=== PATIENT | female | born 1945 | race Caucasian/White ===

== ENCOUNTER 2018-01-01 13:34 | Outpatient (CLI) | payer MEDICARE, BC | END 2018-01-01 13:35 | disposition home or self-care (01) | LOC: BICRAD 13:34 | PROVIDERS: ATTEND Family Medicine | DX: R09.81 Nasal congestion (principal) | CPT/HCPCS: 70220 ==

== ENCOUNTER 2018-01-24 08:53 | Outpatient (CLI) | payer MEDICARE, BC | END 2018-01-24 08:54 | disposition home or self-care (01) | LOC: BICMAMMO 08:53 | PROVIDERS: ATTEND Family Medicine | DX: Z12.31 Encounter for screening mammogram for malignant neoplasm of breast (principal) | CPT/HCPCS: 77063; 77067 ==

== ENCOUNTER 2018-04-07 09:59 | Emergency (ER) | payer MEDICARE, BC ==
[2018-04-07 11:04] LABS: #Basophils 0.1 thou/uL (0.0-0.2); #Eosinphils 0.1 thou/uL (0.0-0.7); #Monocytes 0.5 thou/uL (0.11-0.59); #Neutrophils 3.7 thou/uL (1.40-6.50); %Basophils 0.9 % (0.0-1.0); %Eosinophils 1.6 % (0.0-10.0); %Lymphocytes 30.9 % (21.0-51.0); %Monocytes 8.5 % (0.0-10.0); %Neutrophils 58.1 % (42.0-75.0); Mean Corpuscular HGB CONC 33.4 g/dL (32.0-36.0); Mean Corpuscular Hemoglobin 31.2 pg (27.0-31.0); Mean Corpuscular Volume 93.4 fl (81.0-99.0); Mean Platelet Volume 6.6 fL (7.4-10.4); Platelet Count 258 thou/uL (130-400); RBC Distribution Width 11.9 % (11.5-14.5); Red Blood Cell (RBC) Count 4.81 mill/uL (4.20-5.40); White Blood Cell (WBC) Count 6.3 thou/uL (4.8-10.8)
[2018-04-07] MEDS ORDERED: Pantoprazole 40 MG VIAL ONE (11:22)
[2018-04-07 11:24] LABS: ALT (SGPT) 15 U/L (8-55); AST (SGOT) 24 U/L (5-34); Albumin 4.1 g/dL (3.4-4.8); Alkaline Phosphatase 56 U/L (40-150); Anion Gap 11 mmol/L (10-20); BUN (Urea Nitrogen) 16 mg/dL (9.8-20.1); Bilirubin, Total 0.5 mg/dL (0.2-1.2); Calc. Creatinine Clearance 0 mL/min (70-130); Calcium 9.8 mg/dL (7.8-10.44); Carbon Dioxide 23 mmol/L (23-31); Chloride 107 mmol/L (98-107); Estimated GFR-MDRD 64; Globulin 3.3 g/dL (2.4-3.5); Glucose 95 mg/dL (80-115); Potassium 4.4 mmol/L (3.5-5.1); Protein, Total 7.4 g/dL (6.0-8.3); Sodium 137 mmol/L (136-145)
[2018-04-07 11:45] LABS: Bilirubin Negative (Negative); Blood, Urine Negative (Negative); Clarity CLEAR (Clear); Glucose, Urine (Dipstick) Negative (Negative); Leukocyte Negative (Negative); Nitrite Negative (Negative); Protein, Urine (Dipstick) Negative (Neg-Trace); Specific Gravity, Urine 1.022 (1.002-1.036); Urobilinogen 0.2 mg/dL (0.2-1.0); pH, Urine 5.5 (5.0-9.0)
[2018-04-07 11:45] LABS: CK (CPK) 63 U/L (29-168); Lipase 30 U/L (8-78)
[2018-04-07] MEDS ORDERED: ISOVUE-370 76%-LOCM 1 ML ONE (12:31)
[2018-04-07] MEDS ORDERED: Iopamidol 370 76% 50 ML VIAL FS ONE (12:31)
--- NOTE | 2018-04-07 14:10 | CT ---
CT ABDOMEN WITH CONTRAST CT PELVIS WITH CONTRAST: DATE: 04/07/18 TIME: 1257 HOURS HISTORY: 72-year-old female with epigastric abdominal pain. COMPARISON: 11/21/15. TECHNIQUE: IV injection of iodinated contrast media: 100 mL [id number]. Oral contrast media: PO Isovue. FINDINGS: Previously, there was a moderate amount of free fluid in the dependent portion of the pelvic cavity. Currently, there is no free fluid. No pneumoperitoneum. Previously, there was diffuse colitis involvi ng the distal colon. Currently, no signs of acute colitis or diverticulitis. There are diverticula in the sigmoid colon. No small bowel dilation. No abdominal aortic aneurysm. Small sliding hiatal herni a. Bilateral kidneys, adrenals, pancreas, liver, and spleen are normal. Cholecystectomy clips. Lung b ases are clear. Distended urinary bladder with low lying floor. Absent uterus. The appendix is not vi sualized. IMPRESSION: 1. No acute findings. 2. Sigmoid colonic diverticulosis without acute diverticulitis. 3. Status post hysterectomy. Pelvic relaxation. 4. Status post cholecystectomy. 5. Small sliding hiatal hernia. ERIC POS: MONICA
== END 2018-04-07 15:33 | disposition home or self-care (01) ==
LOC: ERS 09:59
DX: R10.13 Epigastric pain (principal); E78.00 Pure hypercholesterolemia, unspecified; F41.9 Anxiety disorder, unspecified; Z79.899 Other long term (current) drug therapy; Z79.82 Long term (current) use of aspirin
CPT/HCPCS: 74177; 80053; 81003; 82550; 83690; 85025; 93005; 96361; 96374; C9113

== ENCOUNTER 2019-01-31 01:20 | Emergency (ER) | payer MEDICARE, BC ==
[2019-01-31 01:42] LABS: #Basophils 0.1 thou/uL (0.0-0.2); #Eosinphils 0.3 thou/uL (0.0-0.7); #Monocytes 0.6 thou/uL (0.11-0.59); #Neutrophils 3.6 thou/uL (1.40-6.50); %Basophils 1.3 % (0.0-1.0); %Eosinophils 3.5 % (0.0-10.0); %Lymphocytes 39.4 % (21.0-51.0); %Monocytes 7.3 % (0.0-10.0); %Neutrophils 48.4 % (42.0-75.0); Hemoglobin 14.7 g/dL (12.0-16.0); Mean Corpuscular HGB CONC 33.6 g/dL (32.0-36.0); Mean Corpuscular Hemoglobin 31.6 pg (27.0-31.0); Mean Corpuscular Volume 94.1 fL (78.0-98.0); Mean Platelet Volume 6.7 fL (7.4-10.4); Platelet Count 254 thou/uL (130-400); RBC Distribution Width 11.6 % (11.5-14.5); Red Blood Cell (RBC) Count 4.66 mill/uL (4.20-5.40); White Blood Cell (WBC) Count 7.5 thou/uL (4.8-10.8)
[2019-01-31 02:04] LABS: ALT (SGPT) 18 U/L (8-55); AST (SGOT) 25 U/L (5-34); Albumin 4.3 g/dL (3.4-4.8); Alkaline Phosphatase 65 U/L (40-150); Anion Gap 15 mmol/L (10-20); BUN (Urea Nitrogen) 13 mg/dL (9.8-20.1); Bilirubin, Total 0.4 mg/dL (0.2-1.2); Calc. Creatinine Clearance 0 mL/min (70-130); Calcium 10.3 mg/dL (7.8-10.44); Carbon Dioxide 27 mmol/L (23-31); Chloride 105 mmol/L (98-107); Estimated GFR-MDRD 65; Glucose 109 mg/dL (83-110); Potassium 3.5 mmol/L (3.5-5.1); Protein, Total 7.3 g/dL (6.0-8.3); Sodium 143 mmol/L (136-145)
[2019-01-31 03:59] LABS: Bilirubin Negative (Negative); Blood, Urine Negative (Negative); Clarity CLEAR (Clear); Glucose, Urine (Dipstick) Negative (Negative); Leukocyte Negative (Negative); Nitrite Negative (Negative); Protein, Urine (Dipstick) Negative (Neg-Trace); Specific Gravity, Urine 1.019 (1.002-1.036); pH, Urine 6.5 (5.0-9.0)
[2019-01-31] MEDS ORDERED: Aspirin Chewable 81 MG TAB ONE (05:05)
--- NOTE | 2019-01-31 07:58 | RAD ---
PORTABLE CHEST 1 VIEW: DATE: 01/31/2019. TIME: 12:50 a.m. HISTORY: Chest pain. FINDINGS: Comparison is made with to the exam of 10/15/2016. There is continued mild elevation of the right hemidiaphragm. The heart size is normal. The lungs a re expanded without focal areas of consolidation, pneumothoraces, or pleural effusions. There are po stop changes of right rotator cuff repair. IMPRESSION: No acute process. POS: MONICA
--- NOTE | 2019-01-31 09:04 | CT ---
PRELIMINARY REPORT/[facility]/EMERGENTY AFTER-HOURS PROCEDURE CT Head Without Contrast EXAM DATE/TIME: 01/31/2019 2:01 AM CLINICAL HISTORY: 73 years old, female; Signs and symptoms; Dizziness; Patient HX: Er 8; F71 comes into the ed w/ C/O l ightheadedness and generalized weakness beginning approx. 3 hours ago associated w/ mild nausea. TECHNIQUE: Axial computed tomography images of the head/brain without contrast. COMPARISON: No relevant prior studies available. FINDINGS: Brain: Normal. Ventricles: Normal. Bones/joints: Normal. Sinuses: Normal as visualized. Mastoid air cells: Normal as visualized. Soft tissues: Unremarkable. IMPRESSION: No acute intracranial abnormality. Thank you for allowing us to participate in the care of your patient. Dictated and Authenticated by: Arya Rao MD 01/31/2019 4:12 AM Central Time ([place] & [place]) FINAL REPORT EMERGENCY AFTER HOURS STUDY CT BRAIN NONCONTRAST: HISTORY: A 73-year-old female with lightheadedness and generalized weakness with nausea. FINDINGS: There is no midline shift or any other mass effect. There is no evidence of acute intracranial hemor rhage, large cortical infarct, obstructive hydrocephalus, or extraaxial fluid collection. The calvar ium is intact. This report agrees with the preliminary report by [facility]. IMPRESSION: No acute intracranial findings. mary carmen POS: MONICA
== END 2019-01-31 05:15 | disposition home or self-care (01) ==
LOC: ERS 01:20
DX: I10 Essential (primary) hypertension (principal); R42 Dizziness and giddiness; E78.5 Hyperlipidemia, unspecified; F41.9 Anxiety disorder, unspecified; Z79.899 Other long term (current) drug therapy; Z79.82 Long term (current) use of aspirin
CPT/HCPCS: 70450; 71045; 80053; 81003; 84484; 85025; 87086; 93005

== ENCOUNTER 2019-09-24 10:59 | Outpatient (CLI) | payer MEDICARE, BC | END 2019-09-24 11:00 | disposition home or self-care (01) | LOC: CTENTCT 10:59 | PROVIDERS: ATTEND Specialist | DX: R51 Headache (principal) | CPT/HCPCS: 70486 ==

== ENCOUNTER 2020-01-01 07:56 | Outpatient (CLI) | payer MEDICARE, BC ==
--- NOTE | 2020-01-01 09:42 | CT ---
CT ABDOMEN AND PELVIS WITH AND WITHUT IV CONTRAST: HISTORY: Gross hematuria. COMPARISON: 04/07/2018. FINDINGS: The lung bases are clear. The patient is post cholecystectomy, appendectomy, and hysterectomy. A sm all hiatal hernia is again seen. There is a tiny 3 mm low-density lesion in the right posterior medi al aspect of the right lobe of the liver, too small to characterize. The spleen, pancreas, and adren al glands are normal. No calculi are seen in the kidneys, ureters, or the urinary bladder. No hydroureteral nephrosis is n oted on either side. Postcontrast images demonstrate no renal mass. There is normal contrast excret ion into the ureters and urinary bladder. No free air, free fluid, or lymphadenopathy is seen in the abdomen or pelvis. There are vascular crow cifications without evidence of aneurysmal dilatation of the abdominal aorta. There are mild degener ative changes in the spine. There is sigmoid diverticulosis without diverticulitis. IMPRESSION: 1. No CT evidence of urinary tract calculi/obstruction or renal mass. 2. Small hiatal hernia. 3. Sigmoid diverticulosis. POS: OFF
[2020-01-01] MEDS ORDERED: Iopamidol-370 76% 500 ML 1 ML ONE (16:22)
== END 2020-01-01 07:57 | disposition home or self-care (01) ==
LOC: BICCT 07:56
PROVIDERS: ATTEND Urology
DX: R31.0 Gross hematuria (principal); K44.9 Diaphragmatic hernia without obstruction or gangrene; K57.30 Diverticulosis of large intestine without perforation or abscess without bleeding
CPT/HCPCS: 74178; 82565; Q9967

== ENCOUNTER 2022-03-17 08:32 | Outpatient (CLI) | payer MEDICARE, BC | END 2022-03-17 08:33 | disposition home or self-care (01) | LOC: BICMAMMO 08:32 | PROVIDERS: ATTEND Family Medicine | DX: Z12.31 Encounter for screening mammogram for malignant neoplasm of breast (principal) | CPT/HCPCS: 77063; 77067 ==

== ENCOUNTER 2022-07-02 07:50 | Observation (INO) | payer MEDICARE, BC ==
[2022-07-02] MEDS ORDERED: Aspirin Chewable 81 MG TAB ONE (08:22)
[2022-07-02] MEDS ORDERED: Ondansetron PF 4 MG/2 ML Vial ONE (08:22)
[2022-07-02 08:54] LABS: #Basophils 0.1 thou/uL (0.0-0.2); #Eosinphils 0.1 thou/uL (0.0-0.7); #Lymphocytes 1.9 thou/uL (1.20-3.40); #Monocytes 0.4 thou/uL (0.11-0.59); #Neutrophils 3.1 thou/uL (1.40-6.50); %Basophils 1.4 % (0.0-1.0); %Eosinophils 1.3 % (0.0-10.0); %Lymphocytes 33.9 % (21.0-51.0); %Neutrophils 56.5 % (42.0-75.0); Hemoglobin 14.1 g/dL (12.0-16.0); Mean Corpuscular Hemoglobin 31.2 pg (27.0-31.0); Mean Corpuscular Volume 94.7 fL (78.0-98.0); Mean Platelet Volume 6.6 fL (7.4-10.4); Platelet Count 234 thou/uL (130-400); RBC Distribution Width 11.6 % (11.5-14.5); White Blood Cell (WBC) Count 5.5 thou/uL (4.8-10.8)
[2022-07-02 09:20] LABS: ALT (SGPT) 15 U/L (8-55); AST (SGOT) 26 U/L (5-34); Albumin 3.8 g/dL (3.4-4.8); Alkaline Phosphatase 55 U/L (40-110); Anion Gap 15 mmol/L (10-20); BUN (Urea Nitrogen) 11 mg/dL (9.8-20.1); Bilirubin, Total 0.7 mg/dL (0.2-1.2); Calc. Creatinine Clearance 0 mL/min (70-130); Calcium 9.2 mg/dL (7.8-10.44); Carbon Dioxide 26 mmol/L (23-31); Chloride 106 mmol/L (98-107); Estimated GFR 71; Globulin 2.9 g/dL (2.4-3.5); Glucose 101 mg/dL (83-110); Lipase 22 U/L (8-78); Magnesium 2.1 mg/dL (1.6-2.6); Protein, Total 6.7 g/dL (5.8-8.1); Sodium 143 mmol/L (136-145)
[2022-07-02] MEDS ORDERED: Ondansetron PF 4 MG/2 ML Vial IVP PRN (10:36)
[2022-07-02] MEDS ORDERED: Acetaminophen 325 MG TAB PO PRN (10:36)
[2022-07-02] MEDS ORDERED: Sucralfate 1 GM/10 ML UDCUP ONE (10:44)
[2022-07-02] MEDS ORDERED: Lidocaine 2% Viscous Solution 10 ML, Aluminum & Magnesium Hydroxide 30 ML SSW SCH (10:45)
[2022-07-02 12:21] VITALS: BMI 28.0
[2022-07-02] MEDS ORDERED: VASCEPA 1 GM PO SCH (13:00)
[2022-07-02 13:04] LABS: Troponin I Less than 0.010 ng/mL (< 0.028)
[2022-07-02] MEDS ORDERED: Iopamidol 370 76% 100 ML VIAL ONE (14:33)
[2022-07-02] MEDS ORDERED: Icosapent Ethyl 1 GM CAPSULE PO SCH (21:00)
[2022-07-02] MEDS ORDERED: PATIENT'S HOME MEDICATION PO SCH (21:00)
[2022-07-02] MEDS ORDERED: Pantoprazole 40 MG VIAL IVP SCH (21:00)
[2022-07-03 05:20] LABS: Anion Gap 14 mmol/L (10-20); BUN (Urea Nitrogen) 12 mg/dL (9.8-20.1); Calc. Creatinine Clearance 71 mL/min (70-130); Calcium 9.1 mg/dL (7.8-10.44); Carbon Dioxide 24 mmol/L (23-31); Chloride 106 mmol/L (98-107); Estimated GFR 78; Glucose 97 mg/dL (83-110); Sodium 140 mmol/L (136-145)
[2022-07-03] MEDS ORDERED: Enoxaparin Sodium 30 MG/0.3 ML SYRINGE SC SCH (09:00)
[2022-07-03] MEDS ORDERED: Rosuvastatin 10 MG TAB PO SCH (09:00)
[2022-07-03] MEDS ORDERED: Aspirin Chewable 81 MG TAB PO SCH (09:00)
[2022-07-03] MEDS ORDERED: Lidocaine 2% Viscous Solution 10 ML, Aluminum & Magnesium Hydroxide 30 ML SSW SCH (09:45)
[2022-07-03 16:11] VITALS: BP 119/57; TEMP 97.6
== END 2022-07-03 16:30 | disposition home or self-care (01) ==
LOC: ERS 07:50 → 2SW 10:11
PROVIDERS: ADMIT Internal Medicine; ATTEND Internal Medicine
DX: G89.29 Other chronic pain (principal); R10.13 Epigastric pain; K44.9 Diaphragmatic hernia without obstruction or gangrene; K21.9 Gastro-esophageal reflux disease without esophagitis; E78.00 Pure hypercholesterolemia, unspecified; R00.0 Tachycardia, unspecified; K57.30 Diverticulosis of large intestine without perforation or abscess without bleeding; Z86.010 Personal history of colon polyps; Z79.810 Long term (current) use of selective estrogen receptor modulators (SERMs); Z79.899 Other long term (current) drug therapy; Z88.0 Allergy status to penicillin; Z20.822 Contact with and (suspected) exposure to COVID-19
CPT/HCPCS: 71045; 74177; 80048; 80053; 83690; 83735; 83880; 84484 ×2; 85025; 93005; 94760; 96374; 96375; 96376; 99285; G0378 ×3; U0003; U0005; 36415; C9113; J2405; Q9967

== ENCOUNTER 2023-08-29 12:45 | Outpatient (CLI) | payer MEDICARE, BC | END 2023-08-29 12:46 | disposition home or self-care (01) | LOC: BICRAD 12:45 | PROVIDERS: ATTEND Family Medicine | DX: R05.1 Acute cough (principal) | CPT/HCPCS: 71046 ==

== ENCOUNTER 2023-09-05 13:57 | Outpatient (CLI) | payer MEDICARE, BC | END 2023-09-05 13:58 | disposition home or self-care (01) | LOC: BICULT 13:57 | PROVIDERS: ATTEND Family Medicine | DX: I65.21 Occlusion and stenosis of right carotid artery (principal) | CPT/HCPCS: 93880 ==

== ENCOUNTER 2023-09-10 19:40 | Observation (INO) | payer MEDICARE, BC ==
[~2023-09-10 19:40] MED LIST: Iopamidol-370 76% 500 ML MDV (1 ML CHARGE) ONE
[2023-09-10 20:18] LABS: #Eosinphils 0.1 thou/uL (0.0-0.7); #Monocytes 0.5 thou/uL (0.11-0.59); #Neutrophils 8.1 thou/uL (1.40-6.50); %Basophils 0.1 % (0.0-1.0); %Eosinophils 0.5 % (0.0-10.0); %Lymphocytes 5.7 % (21.0-51.0); %Monocytes 5.2 % (0.0-10.0); %Neutrophils 88.3 % (42.0-75.0); Hematocrit 42.6 % (36.0-47.0); Hemoglobin 14.2 g/dL (12.0-16.0); Mean Corpuscular HGB CONC 33.3 g/dL (32.0-36.0); Mean Corpuscular Hemoglobin 30.8 pg (27.0-31.0); Mean Corpuscular Volume 92.4 fl (78.0-98.0); Platelet Count 211 10x3/uL (130-400); RBC Distribution Width 12.8 % (11.5-14.5); Red Blood Cell (RBC) Count 4.61 mill/uL (4.20-5.40); White Blood Cell (WBC) Count 9.2 10x3/uL (4.8-10.8)
[2023-09-10 20:33] LABS: INR-International Normal Ratio 1.1; Prothrombin Time 14.7 sec (12.0-14.7)
[2023-09-10] MEDS ORDERED: Morphine 4 MG/ML VIAL ONE (20:40)
[2023-09-10] MEDS ORDERED: Ondansetron PF 4 MG/2 ML Vial ONE (20:40)
[2023-09-10 20:50] LABS: ALT (SGPT) 14 U/L (8-55); AST (SGOT) 25 U/L (5-34); Albumin 4.3 g/dL (3.4-4.8); Alkaline Phosphatase 58 U/L (40-110); Anion Gap 14 mmol/L (10-20); BUN (Urea Nitrogen) 15 mg/dL (9.8-20.1); Bilirubin, Total 0.7 mg/dL (0.2-1.2); Calc. Creatinine Clearance 0 mL/min (70-130); Calcium 8.9 mg/dL (7.8-10.44); Carbon Dioxide 22 mmol/L (23-31); Chloride 104 mmol/L (98-107); Estimated GFR 72; Globulin 2.6 g/dL (2.4-3.5); Glucose 126 mg/dL (83-110); Magnesium 1.8 mg/dL (1.6-2.6); Potassium 3.8 mmol/L (3.5-5.1); Protein, Total 6.9 g/dL (5.8-8.1); Sodium 136 mmol/L (136-145)
[2023-09-10 23:35] LABS: Bacteria/HPF None Seen HPF (None Seen); Bilirubin Negative (Negative); Blood, Urine Negative (Negative); CAUTI Indications for Culture Alt mental st,lethar; Clarity Clear (Clear); Glucose, Urine (Dipstick) Normal (Negative); Ketone, Urine 10 mg/dL (Negative); Leukocyte Negative Leu/uL (Negative); Nitrite Negative (Negative); Protein, Urine (Dipstick) 10 mg/dL (Neg-Trace); Squamous Epithelial 0-3 HPF (0-3); Urobilinogen Normal mg/dL (Less than 2); WBC/HPF 0-3 HPF (0-3)
[2023-09-10 23:40] LABS: Urine Culture Reflex No No
[2023-09-10 23:43] LABS: Specific Gravity, Urine Greater than 1.060 (1.002-1.036)
[2023-09-11] MEDS ORDERED: Ondansetron PF 4 MG/2 ML Vial IVP PRN (00:55)
[2023-09-11] MEDS ORDERED: Acetaminophen 325 MG TAB PO PRN (00:55)
[2023-09-11] MEDS ORDERED: Morphine 4 MG/ML VIAL ONE (00:55)
[2023-09-11] MEDS ORDERED: Pantoprazole 80 MG, Admixture Fee 1 EACH in Sodium Chloride 0.9% 100 ML IVPB SCH (01:00)
[2023-09-11] MEDS ORDERED: Sodium Chloride 0.9% 1,000 ML IV SCH (01:00)
[2023-09-11] MEDS ORDERED: Pantoprazole 40 MG VIAL IVP SCH ×2 (01:00→09:00)
[2023-09-11 02:00] VITALS: BMI 28.5
[2023-09-11 06:15] LABS: #Eosinphils 0.1 thou/uL (0.0-0.7); #Monocytes 0.4 thou/uL (0.11-0.59); %Basophils 0.2 % (0.0-1.0); %Lymphocytes 11.8 % (21.0-51.0); %Monocytes 8.1 % (0.0-10.0); %Neutrophils 78.7 % (42.0-75.0); Hematocrit 36.9 % (36.0-47.0); Hemoglobin 12.3 g/dL (12.0-16.0); Mean Corpuscular HGB CONC 33.3 g/dL (32.0-36.0); Mean Corpuscular Hemoglobin 31.3 pg (27.0-31.0); Mean Corpuscular Volume 93.9 fl (78.0-98.0); Mean Platelet Volume 9.2 fL (7.4-10.4); Platelet Count 175 10x3/uL (130-400); RBC Distribution Width 12.8 % (11.5-14.5); Red Blood Cell (RBC) Count 3.93 mill/uL (4.20-5.40); White Blood Cell (WBC) Count 5.1 10x3/uL (4.8-10.8)
[2023-09-11 06:45] LABS: ALT (SGPT) 14 U/L (8-55); AST (SGOT) 21 U/L (5-34); Albumin 3.4 g/dL (3.4-4.8); Alkaline Phosphatase 46 U/L (40-110); Anion Gap 11 mmol/L (10-20); BUN (Urea Nitrogen) 12 mg/dL (9.8-20.1); Bilirubin, Total 0.6 mg/dL (0.2-1.2); Calc. Creatinine Clearance 78 mL/min (70-130); Calcium 7.9 mg/dL (7.8-10.44); Carbon Dioxide 24 mmol/L (23-31); Chloride 106 mmol/L (98-107); Estimated GFR 87; Globulin 2.1 g/dL (2.4-3.5); Glucose 90 mg/dL (83-110); Potassium 3.3 mmol/L (3.5-5.1); Protein, Total 5.5 g/dL (5.8-8.1); Sodium 138 mmol/L (136-145)
[2023-09-11] MEDS ORDERED: Potassium Chloride 20 MEQ TAB PO SCH (08:00)
[2023-09-11 12:15] LABS: #Eosinphils 0.1 thou/uL (0.0-0.7); #Monocytes 0.5 thou/uL (0.11-0.59); #Neutrophils 2.5 thou/uL (1.40-6.50); %Basophils 0.3 % (0.0-1.0); %Eosinophils 1.9 % (0.0-10.0); %Lymphocytes 17.1 % (21.0-51.0); %Monocytes 12.5 % (0.0-10.0); %Neutrophils 68.2 % (42.0-75.0); Hematocrit 36.2 % (36.0-47.0); Mean Corpuscular HGB CONC 33.1 g/dL (32.0-36.0); Mean Corpuscular Hemoglobin 31.1 pg (27.0-31.0); Mean Corpuscular Volume 93.8 fl (78.0-98.0); Platelet Count 171 10x3/uL (130-400); RBC Distribution Width 12.7 % (11.5-14.5); Red Blood Cell (RBC) Count 3.86 mill/uL (4.20-5.40); White Blood Cell (WBC) Count 3.7 10x3/uL (4.8-10.8)
[2023-09-11 17:02] VITALS: BP 117/72; TEMP 97.9
[2023-09-11] MEDS ORDERED: Icosapent Ethyl 1 GM CAPSULE FS SCH (21:00)
[2023-09-11] MEDS ORDERED: Non-Formulary Item 1 EACH (Icosapent Ethyl [Vascepa] 1 GM Capsule) PO SCH (21:00)
[2023-09-11] MEDS ORDERED: Calcium Carbonate 600 MG TAB PO SCH (21:00)
[2023-09-11] MEDS ORDERED: Rosuvastatin 10 MG TAB PO SCH (21:00)
[2023-09-12] MEDS ORDERED: Raloxifene 60 MG TAB PO SCH (09:00)
[2023-09-12] MEDS ORDERED: Non-Formulary Item 1 EACH (Multivitamin [Daily Multiple Vitamin] 1 EACH Tablet) PO SCH (09:00)
[2023-09-12] MEDS ORDERED: Multivit, Therapeutic 1 TAB PO SCH (09:00)
== END 2023-09-11 17:48 | disposition home or self-care (01) ==
LOC: ERS 19:40 → T4-B 09-11 00:31
PROVIDERS: ADMIT Internal Medicine; ATTEND Emergency Medicine
DX: K52.9 Noninfective gastroenteritis and colitis, unspecified (principal); I10 Essential (primary) hypertension; E78.5 Hyperlipidemia, unspecified; K21.9 Gastro-esophageal reflux disease without esophagitis; Z88.0 Allergy status to penicillin; Z90.49 Acquired absence of other specified parts of digestive tract; Z90.710 Acquired absence of both cervix and uterus; Z79.899 Other long term (current) drug therapy
CPT/HCPCS: 74177; 80053 ×2; 81001; 83735; 85025 ×3; 85610; 85730; 86850; 86870; 86900; 86901; 86902; 86904; 86905; 86920; 86922; 96374; 96375 ×2; 96376 ×2; 99285; G0378 ×2; 36415; 82274; C9113; J2270; J2405; J3490; J7050; Q9967

== ENCOUNTER 2024-05-01 09:50 | Outpatient (CLI) | payer MEDICARE | END 2024-05-01 09:51 | disposition home or self-care (01) | LOC: BICMAMMO 09:50 | PROVIDERS: ATTEND Family Medicine | DX: Z12.31 Encounter for screening mammogram for malignant neoplasm of breast (principal) | CPT/HCPCS: 77063; 77067 ==

== ENCOUNTER 2024-09-15 11:04 | Outpatient (CLI) | payer MEDICARE | END 2024-09-15 11:05 | disposition home or self-care (01) | LOC: BICRAD 11:04 | PROVIDERS: ATTEND Family Medicine | DX: M75.81 Other shoulder lesions, right shoulder (principal) ==

== ENCOUNTER 2024-11-26 21:46 | Emergency (ER) | payer MEDICARE ==
[2024-11-26] MEDS ORDERED: Ondansetron PF 4 MG/2 ML Vial ONE (22:37)
[2024-11-26] MEDS ORDERED: Morphine 4 MG/ML VIAL ONE (22:37)
[2024-11-26 23:00] LABS: Bilirubin Negative (Negative); Blood, Urine Negative (Negative); CAUTI Indications for Culture Pelvic or flank pain; Clarity Clear (Clear); Glucose, Urine (Dipstick) Normal (Negative); Ketone, Urine 10 mg/dL (Negative); Leukocyte 75 Leu/uL (Negative); Nitrite Negative (Negative); Protein, Urine (Dipstick) 20 mg/dL (Neg-Trace); RBC/HPF 0-3 HPF (0-3); Specific Gravity, Urine 1.028 (1.002-1.036); Squamous Epithelial 0-3 HPF (0-3); Urobilinogen Normal mg/dL (Less than 2); pH, Urine 5.5 (5.0-9.0)
[2024-11-26 23:03] LABS: #Basophils 0.04 10x3/uL (0.0-0.2); %Basophils 0.6 % (0.0-1.0); %Eosinophils 2.1 % (0.0-10.0); %Lymphocytes 38.2 % (21.0-51.0); %Monocytes 8.7 % (0.0-10.0); %Neutrophils 50.3 % (42.0-75.0); Hematocrit 41.4 % (36.0-47.0); Hemoglobin 14.4 g/dL (12.0-16.0); Mean Corpuscular HGB CONC 34.8 g/dL (32.0-36.0); Mean Corpuscular Volume 89.2 fL (78.0-98.0); Mean Platelet Volume 9.1 fL (7.4-10.4); Platelet Count 230 10x3/uL (130-400); RBC Distribution Width 12.3 % (11.5-14.5); Red Blood Cell (RBC) Count 4.64 mill/uL (4.20-5.40)
[2024-11-26 23:08] LABS: Bacteria/HPF 1+ HPF (None Seen)
[2024-11-26 23:09] LABS: Urine Culture Reflex No No
[2024-11-26 23:18] LABS: Calc. Creatinine Clearance 0 mL/min (70-130); Estimated GFR 49
[2024-11-26 23:20] LABS: ALT (SGPT) 29 U/L (8-55); AST (SGOT) 48 U/L (5-34); Albumin 4.1 g/dL (3.4-4.8); Alkaline Phosphatase 57 U/L (40-110); Anion Gap 15 mmol/L (10-20); BUN (Urea Nitrogen) 13 mg/dL (9.8-20.1); Bilirubin, Total 0.4 mg/dL (0.2-1.2); Calcium 9.2 mg/dL (7.8-10.44); Carbon Dioxide 20 mmol/L (23-31); Chloride 107 mmol/L (98-107); Globulin 3.3 g/dL (2.4-3.5); Glucose 110 mg/dL (83-110); Lipase 49 U/L (8-78); Magnesium 2.2 mg/dL (1.6-2.6); Potassium 3.8 mmol/L (3.5-5.1); Protein, Total 7.4 g/dL (5.8-8.1); Sodium 138 mmol/L (136-145)
[2024-11-26 23:24] LABS: Troponin I Less than 0.010 ng/mL (< 0.028)
== END 2024-11-27 00:49 | disposition home or self-care (01) ==
LOC: ERS 21:46
DX: K57.90 Diverticulosis of intestine, part unspecified, without perforation or abscess without bleeding (principal); R11.0 Nausea
CPT/HCPCS: 74177; 80053; 81001; 83605; 83690; 83735; 84484; 85025; J2272; J2405; 36415; 87086; 96374; 96375; Q9967

== ENCOUNTER 2025-07-08 17:49 | Emergency (ER) | payer MEDICARE ==
[2025-07-08] MEDS ORDERED: diphenhydrAMINE 50 MG/ML VIAL ONE (18:22)
[2025-07-08] MEDS ORDERED: Metoclopramide HCl 10 MG (2 mL) VIAL ONE (18:22)
[2025-07-08 18:41] LABS: #Basophils 0.03 10x3/uL (0.0-0.2); #Eosinophils 0.10 10x3/uL (0.0-0.7); #Monocytes 0.47 10x3/uL (0.11-0.59); #Neutrophils 2.55 10x3/uL (1.40-6.50); %Basophils 0.5 % (0.0-1.0); %Eosinophils 1.8 % (0.0-10.0); %Lymphocytes 43.0 % (21.0-51.0); %Monocytes 8.5 % (0.0-10.0); %Neutrophils 45.8 % (42.0-75.0); Hematocrit 39.7 % (36.0-47.0); Hemoglobin 13.1 g/dL (12.0-16.0); Mean Corpuscular Hemoglobin 30.4 pg (27.0-31.0); Mean Corpuscular Volume 92.1 fL (78.0-98.0); Platelet Count 212 10x3/uL (130-400); Red Blood Cell (RBC) Count 4.31 mill/uL (4.20-5.40); White Blood Cell (WBC) Count 5.56 10x3/uL (4.8-10.8)
[2025-07-08 19:00] LABS: ALT (SGPT) 23 U/L (Less than 34); AST (SGOT) 35 U/L (11-34); Albumin 4.1 g/dL (3.1-4.5); Alkaline Phosphatase 62 U/L (40-110); Anion Gap 13 mmol/L (10-20); BUN (Urea Nitrogen) 16 mg/dL (9.8-20.1); Bilirubin, Total 0.4 mg/dL (0.3-1.2); Calc. Creatinine Clearance 0 mL/min (70-130); Calcium 8.9 mg/dL (7.8-10.44); Carbon Dioxide 23 mmol/L (23-31); Chloride 106 mmol/L (98-107); Globulin 2.7 g/dL (2.4-3.5); Glucose 117 mg/dL (83-110); Potassium 3.9 mmol/L (3.5-5.1); Sodium 138 mmol/L (136-145)
== END 2025-07-08 19:35 | disposition home or self-care (01) ==
LOC: ERS 17:49
DX: I10 Essential (primary) hypertension (principal)
CPT/HCPCS: 70450; 80053; 84484; 85025; 93005; J1200; J2765; 96365; 96375

== ENCOUNTER 2025-07-16 06:16 | Emergency (ER) | payer MEDICARE ==
[2025-07-16 08:15] LABS: #Basophils 0.03 10x3/uL (0.0-0.2); #Eosinophils 0.11 10x3/uL (0.0-0.7); #Monocytes 0.42 10x3/uL (0.11-0.59); #Neutrophils 2.60 10x3/uL (1.40-6.50); %Basophils 0.6 % (0.0-1.0); %Eosinophils 2.2 % (0.0-10.0); %Lymphocytes 36.2 % (21.0-51.0); %Monocytes 8.5 % (0.0-10.0); %Neutrophils 52.3 % (42.0-75.0); Hematocrit 39.8 % (36.0-47.0); Hemoglobin 13.3 g/dL (12.0-16.0); Mean Corpuscular Hemoglobin 30.4 pg (27.0-31.0); Mean Corpuscular Volume 90.9 fL (78.0-98.0); Platelet Count 221 10x3/uL (130-400); Red Blood Cell (RBC) Count 4.38 mill/uL (4.20-5.40); White Blood Cell (WBC) Count 4.97 10x3/uL (4.8-10.8)
[2025-07-16 08:43] LABS: ALT (SGPT) 22 U/L (Less than 34); AST (SGOT) 31 U/L (11-34); Albumin 4.0 g/dL (3.1-4.5); Alkaline Phosphatase 56 U/L (40-110); Anion Gap 13 mmol/L (10-20); BUN (Urea Nitrogen) 12 mg/dL (9.8-20.1); Bilirubin, Total 0.8 mg/dL (0.3-1.2); Calc. Creatinine Clearance 0 mL/min (70-130); Calcium 9.2 mg/dL (7.8-10.44); Carbon Dioxide 25 mmol/L (23-31); Chloride 107 mmol/L (98-107); Globulin 2.7 g/dL (2.4-3.5); Glucose 99 mg/dL (83-110); Potassium 4.0 mmol/L (3.5-5.1); Sodium 141 mmol/L (136-145)
== END 2025-07-16 09:11 | disposition home or self-care (01) ==
LOC: ERS 06:16
DX: I10 Essential (primary) hypertension (principal); R51.9 Headache, unspecified
CPT/HCPCS: 80053; 85025; 93005; 99283

== ENCOUNTER 2025-10-20 09:52 | Outpatient (CLI) | payer MEDICARE | END 2025-10-20 09:53 | disposition home or self-care (01) | LOC: BICMRI 09:52 | PROVIDERS: ATTEND Family Medicine | DX: M54.16 Radiculopathy, lumbar region (principal); M48.061 Spinal stenosis, lumbar region without neurogenic claudication | CPT/HCPCS: 72148 ==